=== PATIENT | female | born 1930 | race Caucasian/White ===

== ENCOUNTER 2016-12-26 13:04 | Emergency (ER) | payer MEDICARE, BC ==
--- NOTE | 2016-12-26 13:43 | EDM.PDOC ---
ED HPI GENERAL MEDICAL PROBLEM - General Chief Complaint: General Stated Complaint: ringing in ears Time Seen by Provider: 12/26/16 13:10 Source of Information: Reports: Patient, Family, RN History Limitations: Reports: No Limitations - History of Present Illness INITIAL COMMENTS - FREE TEXT/NARRATIVE: c/o weak, dizzy, ring ears, blur vision x 2d last saw PCP Dr Napier 2m ago for f/u, no change in meds last saw director community organization Dr Wright in summer, has a "leaking heart valve" that was stable lives in [place] at [facility], here with dtr no f/c/d, no n/v does not feel herself PMH htn, a flutter, MVR, PD, UTI, hypothyroids, esophagitis, diverticulosis, PE meds: atorvastatin, Xarelto, metoprolol, diltiazem, dig, sertraline, mirtazapine , Sinemet, levothyroxine last labs: hgb 13.7 & wbc 5.4 with 43% segs and 7% eos on 06-24-15, BUN/creat 28/ 1.1 on 06-24-15, BNP 157 on 06-24-15, TSH 0.51 on 06-24-15, UA with > 100 wbc, few bacteria, moderate epi's on 06-24-15 last imaging: CxR with pul edema on 06-24-15, no cardiac echo in EHR appetite okay, ate toast and OJ for bfast (out of cereal), had fish and rice and mixed veg and toast and ice cream for lunch slept well last night h/o PE, a concernt of dtr - Related Data Allergies Allergy/AdvReac Type Severity Reaction Status Date / Time ciprofloxacin HCl Allergy Cannot Verified 12/26/16 13:14 [From Cipro] Remember hydrocortisone [From Cortaid] Allergy Rash Verified 12/26/16 13:14 niacin Allergy Cannot Verified 12/26/16 13:14 Remember pneumococcal 23-valent Allergy Rash Verified 12/26/16 13:14 polysacchari [From Pneumovax 23] BANDAID Allergy Rash Uncoded 12/26/16 13:14 FLORINAL WITH CODEINE Allergy Cannot Uncoded 12/26/16 13:14 Remember FLU VACCINE Allergy Rash Uncoded 12/26/16 13:14 TAPE Allergy Rash Uncoded 12/26/16 13:14 Home Meds: Home Meds Calcium Carbonate/Vitamin D3 [Calcium 500 with Vitamin D] 1 tab PO DAILY [History] Diltiazem [Cardizem CD] 120 mg PO DAILY 10/25/12 [History] Metoprolol Tartrate [Lopressor] 25 mg PO BID 10/25/12 [History] Sertraline HCl [Zoloft] 100 mg PO DAILY 10/25/12 [History] Brimonidine [Alphagan P 0.1% Ophth Soln] 1 drop OP BID 04/16/13 [History] Digoxin [Digox] 0.125 mg PO DAILY 04/16/13 [History] Mirtazapine [Mirtazapine] 45 mg PO BEDTIME 04/20/15 [History] ALPRAZolam [Xanax] 0.25 mg PO BID PRN 06/24/15 [History] Carbidopa/Levodopa [Carbidopa-Levo ER 50-200] 1.5 tab PO DAILY 06/24/15 [History ] Levothyroxine 125 mcg PO DAILY 06/24/15 [History] Acetaminophen [Tylenol] 325 mg PO Q4HR PRN 12/26/16 [History] Bimatoprost [LUMIGAN 0.03% Ophth Soln] 1 drop EYEBOTH BEDTIME 12/26/16 [History] Carbidopa/Levodopa [Sinemet 25-100 mg Tablet] 2 oz PO DAILY 12/26/16 [History] Carbidopa/Levodopa [Sinemet 25-100 mg Tablet] 2.5 each PO TID 12/26/16 [History] Rivaroxaban [Xarelto] 15 mg PO DAILY 12/26/16 [History] Trimethoprim 100 mg PO DAILY 12/26/16 [History] Past Medical History HEENT History: Reports: Glaucoma, Macular Degeneration Cardiovascular History: Reports: Afib, High Cholesterol, Hypertension Other Cardiovascular History: cardiomegaly Respiratory History: Reports: PE, SOB Gastrointestinal History: Reports: GI Bleed Neurological History: Reports: Parkinson's Psychiatric History: Reports: Anxiety, Depression Endocrine/Metabolic History: Reports: Hypothyroidism Dermatologic History: Reports: Other (See Below) Other Dermatologic History: vericose veins - Past Surgical History GI Surgical History: Reports: Appendectomy Social & Family History - Family History Family Medical History: Noncontributory - Tobacco Use Smoking Status *Q: Never Smoker Second Hand Smoke Exposure: No - Caffeine Use Caffeine Use: Reports: Coffee, Soda - Alcohol Use Days Per Week of Alcohol Use: 0 - Recreational Drug Use Recreational Drug Use: No - Living Situation & Occupation Living situation: Reports: Occupation: Retired ED ROS GENERAL - Review of Systems Review Of Systems: See Below Constitutional: Reports: Weakness, Other (no diuretic). Denies: Fever, Chills, Malaise, Diaphoresis, Decreased Appetite, Weight Loss, Weight Gain HEENT: Reports: Vision Change, Other (ring in ears) Respiratory: Reports: Shortness of Breath Cardiovascular: Reports: No Symptoms. Denies: Chest Pain Endocrine: Reports: No Symptoms GI/Abdominal: Reports: No Symptoms : Reports: No Symptoms Musculoskeletal: Reports: Other (pain at flanks, R>L) Skin: Reports: No Symptoms Neurological: Reports: Tremors, Other (h/o PD, uses walker, more tremulous) Psychiatric: Reports: No Symptoms Hematologic/Lymphatic: Reports: No Symptoms Immunologic: Reports: No Symptoms ED EXAM, GENERAL - Physical Exam Exam: See Below Exam Limited By: No Limitations General Appearance: Alert, WD/WN, No Apparent Distress, Anxious Eye Exam: Bilateral Eye: EOMI, Normal Inspection, PERRL Ears: Normal External Exam, Hearing Grossly Normal Nose: Normal Inspection, Normal Mucosa, No Blood Throat/Mouth: Normal Inspection, Normal Lips, Normal Gums, Normal Oropharynx, Normal Voice, No Airway Compromise Head: Atraumatic, Normocephalic Neck: Normal Inspection, Supple, Non-Tender Respiratory/Chest: No Respiratory Distress, Lungs Clear, Normal Breath Sounds, No Accessory Muscle Use, Chest Non-Tender, Other (mild tachypnea with RR 24, occasional nonproductive cough, clear all cr) Cardiovascular: Regular Rate, Rhythm, No Edema, No Gallop, No JVD, No Rub, Other (dec'd turgor ext x 4, no tenting, 2-3/6 MAHOGANY AAL to LSB, no heave) GI/Abdominal: Normal Bowel Sounds, Soft, Non-Tender, No Organomegaly, No Distention, No Mass Back Exam: Normal Inspection, Other (slight tender CVA R>L) Extremities: Normal Inspection, Non-Tender, No Pedal Edema Neurological: Alert, Oriented, CN II-XII Intact, Normal Cognition, No Motor/ Sensory Deficits, Other (tremor UE and LEs, nl speech, did sit readily without assistance) Psychiatric: Normal Affect, Normal Mood Skin Exam: Warm, Dry, Intact, Normal Color, No Rash Lymphatic: No Adenopathy Course - Vital Signs Last Recorded V/S: Last Vital Signs Temp 36.3 C 12/26/16 13:15 Pulse 70 12/26/16 13:15 Resp 18 12/26/16 13:15 BP 165/87 H 12/26/16 13:15 Pulse Ox 98 12/26/16 13:15 - Orders/Labs/Meds Orders: Active Orders 24 hr Category Date Time Status Orthostatic Vital Signs [RC] ASDIRECTED Care 12/26/16 14:53 Active CULTURE URINE [RM] Stat Lab 12/26/16 13:43 Received EKG 12 Lead [EK] Routine Ther 12/26/16 13:34 Ordered Labs: Laboratory Tests 12/26/16 12/26/16 12/26/16 Range/Units 13:43 13:50 13:50 WBC 9.1 (4.5-12.0) X10-3/uL RBC 3.33 (3.23-5.20) x10(6)uL Hgb 10.4 L D (11.5-15.5) g/dL Hct 31.5 D (30.0-51.3) % MCV 94.6 (80-96) fL MCH 31.4 (27.7-33.6) pg MCHC 33.2 (32.2-35.4) g/dL RDW 13.0 (11.5-15.5) % Plt Count 264 (125-369) X10(3)uL MPV 8.0 (7.4-10.4) fL Neut % (Auto) 79.4 (46-82) % Lymph % (Auto) 11.0 L (13-37) % [place] % (Auto) 6.4 (4-12) % Eos % (Auto) 3 (1.0-5.0) % Baso % (Auto) 1 (0-2) % Neut # (Auto) 7.2 (1.6-8.3) # Lymph # (Auto) 1.0 (0.6-5.0) # [place] # (Auto) 0.6 (0.0-1.3) # Eos # (Auto) 0.2 (0.0-0.8) # Baso # (Auto) 0.1 (0.0-0.2) # D-Dimer, Quantitative 135 (100-400) ng/mL Sodium (135-145) mmol/L Potassium (3.5-5.3) mmol/L Chloride (100-110) mmol/L Carbon Dioxide (23-29) mmol/L BUN (8-23) mg/dL Creatinine (0.6-1.3) mg/dL Est Cr Clr Drug Dosing mL/min Estimated GFR (MDRD) (>60) BUN/Creatinine Ratio (9-20) Glucose (80-116) mg/dL Calcium (8.6-10.2) mg/dL Total Bilirubin (0.1-1.3) mg/dL AST (5-27) IU/L ALT (14-26) IU/L Alkaline Phosphatase (56-112) IU/L Troponin I (0.02-0.06) NG/ML C-Reactive Protein (0.0-1.0) mg/dL NT-Pro-B Natriuret Pep (5-450) pg/mL Total Protein (6.0-8.0) g/dL Albumin (3.2-4.6) g/dL Globulin g/dL Albumin/Globulin Ratio Urine Color Yellow (YELLOW) Urine Appearance Clear (CLEAR) Urine pH 6.0 (5.0-6.5) Ur Specific [place] 1.015 (1.010-1.025) Urine Protein Negative (NEGATIVE) mg/dL Urine Glucose (UA) Normal (NEGATIVE) mg/dL Urine Ketones Negative (NEGATIVE) mg/dL Urine Occult Blood Negative (NEGATIVE) Urine Nitrite Negative (NEGATIVE) Urine Bilirubin Negative (NEGATIVE) Urine Urobilinogen Normal (NEGATIVE) mg/dL Ur Leukocyte Esterase Negative (NEGATIVE) Urine RBC 0-5 (0) Urine WBC 0-5 (0) Ur Squamous Epith Cells Rare (NS,R,O) Amorphous Sediment Moderate Urine Bacteria Moderate H (NS) 12/26/16 12/26/16 Range/Units 13:50 13:50 WBC (4.5-12.0) X10-3/uL RBC (3.23-5.20) x10(6)uL Hgb (11.5-15.5) g/dL Hct (30.0-51.3) % MCV (80-96) fL MCH (27.7-33.6) pg MCHC (32.2-35.4) g/dL RDW (11.5-15.5) % Plt Count (125-369) X10(3)uL MPV (7.4-10.4) fL Neut % (Auto) (46-82) % Lymph % (Auto) (13-37) % [place] % (Auto) (4-12) % Eos % (Auto) (1.0-5.0) % Baso % (Auto) (0-2) % Neut # (Auto) (1.6-8.3) # Lymph # (Auto) (0.6-5.0) # [place] # (Auto) (0.0-1.3) # Eos # (Auto) (0.0-0.8) # Baso # (Auto) (0.0-0.2) # D-Dimer, Quantitative (100-400) ng/mL Sodium 140 (135-145) mmol/L Potassium 4.6 (3.5-5.3) mmol/L Chloride 106 (100-110) mmol/L Carbon Dioxide 27 (23-29) mmol/L BUN 37 H (8-23) mg/dL Creatinine 1.3 (0.6-1.3) mg/dL Est Cr Clr Drug Dosing 25.48 mL/min Estimated GFR (MDRD) 39 L (>60) BUN/Creatinine Ratio 28.5 H (9-20) Glucose 124 H (80-116) mg/dL Calcium 8.7 (8.6-10.2) mg/dL Total Bilirubin 0.5 (0.1-1.3) mg/dL AST 17 D (5-27) IU/L ALT < 5 L (14-26) IU/L Alkaline Phosphatase 63 (56-112) IU/L Troponin I < 0.01 L (0.02-0.06) NG/ML C-Reactive Protein < 0.5 (0.0-1.0) mg/dL NT-Pro-B Natriuret Pep 671 H (5-450) pg/mL Total Protein 6.5 (6.0-8.0) g/dL Albumin 3.6 (3.2-4.6) g/dL Globulin 2.9 g/dL Albumin/Globulin Ratio 1.2 Urine Color (YELLOW) Urine Appearance (CLEAR) Urine pH (5.0-6.5) Ur Specific [place] (1.010-1.025) Urine Protein (NEGATIVE) mg/dL Urine Glucose (UA) (NEGATIVE) mg/dL Urine Ketones (NEGATIVE) mg/dL Urine Occult Blood (NEGATIVE) Urine Nitrite (NEGATIVE) Urine Bilirubin (NEGATIVE) Urine Urobilinogen (NEGATIVE) mg/dL Ur Leukocyte Esterase (NEGATIVE) Urine RBC (0) Urine WBC (0) Ur Squamous Epith Cells (NS,R,O) Amorphous Sediment Urine Bacteria (NS) Meds: Medications Discontinued Medications Generic Name Dose Route Start Last Admin Trade Name Freq PRN Reason Stop Dose Admin Carbidopa/Levodopa 2.5 tab 12/26/16 14:44 12/26/16 14:55 Sinemet 25-100 Mg PO 12/26/16 14:45 2.5 tab ONETIME ONE Administration - Re-Assessments/Exams Free Text/Narrative Re-Assessment/Exam: 12/26/16 15:13 pt is orthostatic with BP 172/81 and HR 18 supine, BP 128/73 and HR 20 lying d/w Dr Gonzalez who does not see pul edema, thinks that there is COPD, pt never smoked, her smoked, PO 98% on RA here today cardiac values (trop, proBNP, EKG without strain) are all stable, is in SR BUN/creat have inc'd to 37/1.3 form 28/1.1, perhaps d/t dehydration as clinically she has dec'd turgor and drinks very little, not on diuretic however also with new onset anemia with hgb 10.4 c/w 13.7 one yr ago, had a neg colonoscopy 1y ago, will check hemoccult cards has apt with PCP Dr Napier in 2 wk, will move that up to next weeks Departure - Departure Time of Disposition: 15:12 Disposition: Home, Self-Care 01 Condition: Good Clinical Impression: Orthostasis, Dehydration, Acute on chronic renal failure, Normocytic normochromic anemia, Bacteria in urine - Discharge Information Referrals: Esa Napier MD [Primary Care Provider] - Forms: ED Department Discharge Additional Instructions: Continue current meds. Drink 1.2 liters of fluids daily. Record the amount of fluid that you drink in the next week. Collect 3 Hemoccult cards prior to your visit with Dr Napier. See Dr Napier in the next 4-5 days. Return to ED if you are feeling worse. Call your Physician or Return to Emergency Department if: * Your condition worsens in any way. * You develop fever greater than 100.4. * You have vomitting that does not stop with medications. * You have pain that is not controlled with medications. - My Orders Last 24 Hours: My Active Orders 12/26/16 13:34 EKG 12 Lead [EK] Routine 12/26/16 13:43 CULTURE URINE [RM] Stat 12/26/16 14:53 Orthostatic Vital Signs [RC] ASDIRECTED - Assessment/Plan Last 24 Hours: My Active Orders 12/26/16 13:34 EKG 12 Lead [EK] Routine 12/26/16 13:43 CULTURE URINE [RM] Stat 12/26/16 14:53 Orthostatic Vital Signs [RC] ASDIRECTED
[2016-12-26] MEDS ORDERED: Carbidopa/Levodopa 25-100 MG Tab PO ONE ×2 (14:35→14:44)
--- NOTE | 2016-12-26 14:47 | CR ---
INDICATION: Short of breath. CHEST: PA and lateral views of the chest 12/26/2016 were compared with 2015 and 10/11/2014, again revealing the heart to be enlarged with left ventricular and left atrial enlargement suggested. The aorta is tortuous with calcification in the arch. Findings remain compatible with COPD with hyperaeration, increased AP diameter, and minimal flattening of diaphragm leaves on the lateral view. An active infiltrate or effusion was not identified. Somewhat diminished bone density is suggested, which may be on the basis of osteoporosis or osteomalacia and should be correlated clinically. Moderate hypertrophic degenerative changes are noted in the upper middle thoracic spine. Degenerative disk disease is noted at several levels in the upper middle and middle thoracic spine. No evidence of CHF is identified. IMPRESSION: 1. No definite acute process. 2. COPD. 3. ASHD with LVE and LAE. 4. Osteoporosis, DJD, and disk disease upper middle thoracic spine. MTDD
[2016-12-26 15:35] VITALS: BP 152/84
== END 2016-12-26 15:35 | disposition home or self-care (01) ==
LOC: FB.ED 13:04
DX: I95.1 Orthostatic hypotension (principal); N17.9 Acute kidney failure, unspecified; I12.9 Hypertensive chronic kidney disease with stage 1 through stage 4 chronic kidney disease, or unspecified chronic kidney disease; N18.9 Chronic kidney disease, unspecified; E86.0 Dehydration; D64.9 Anemia, unspecified; R82.71 Bacteriuria; I48.92 Unspecified atrial flutter; E03.9 Hypothyroidism, unspecified; Z79.899 Other long term (current) drug therapy; Z88.7 Allergy status to serum and vaccine; Z88.1 Allergy status to other antibiotic agents; Z91.09 Other allergy status, other than to drugs and biological substances
CPT/HCPCS: 36415; 71020; 80053; 81001; 83880; 84484; 85025; 85379; 86140; 87086; 87088; 87186; 93005; 99284; A9270

== ENCOUNTER 2017-11-11 07:49 | Day surgery (SDC) | payer MEDICARE, BC ==
[2017-11-11] MEDS ORDERED: Lactated Ringers 1,000 ML IV SCH (08:05)
[2017-11-11] MEDS ORDERED: Propofol 200 MG/20 ML SDV IV ONE (09:30)
--- NOTE | 2017-11-11 09:48 | PCM.OPNOTE ---
- General Post-Op/Procedure Note Date of Surgery/Procedure: 11/11/17 Operative Procedure(s): egd with biopsy Findings: distal esophageal mass/stricture Pre Op Diagnosis: dysphagia. gerd Post-Op Diagnosis: esophageal mass/stricture Anesthesia Technique: MAC Primary Surgeon: Reynaldo Henry Anesthesia Provider: Sravanthi Beltran Pathology: distal esophagus Complications: None Condition: Good Free Text/Narrative:: see dictation
--- NOTE | 2017-11-11 11:24 | OR ---
DATE OF OPERATION: 11/11/2017 SURGEON: Reynaldo Henry MD PROCEDURES PERFORMED: EGD with cold forceps biopsy. PREOPERATIVE DIAGNOSIS: Gastroesophageal reflux disease with possible esophageal stricture. POSTOPERATIVE DIAGNOSES: Esophageal stricture/mass, proximal esophageal dilatation. INDICATIONS FOR PROCEDURE: This is an 87-year-old white female referred with a history of some dysphagia. On recent upper GI, she was noted to have some findings consistent with possible achalasia or stricture, questionable mass. She was offered and accepted an upper endoscopy. DESCRIPTION OF PROCEDURE: After an excellent IV sedation was administered, the bite block was inserted. The flexible endoscope was passed without difficulty down the patient's esophagus and into the stomach. The stomach was insufflated. The scope was passed through the pylorus, to the second portion of the duodenum, and slowly withdrawn. The following findings were noted. The duodenum was unremarkable. The stomach was unremarkable. Esophagus, GE junction measured approximately 38 cm. At approximately 30 cm, there was a mass approximately 3 to 4 cm in length with what appears to be extension into the esophagus. Multiple biopsies were taken. The proximal esophagus was markedly dilated and photo was taken. The patient tolerated the procedure well and was taken to the recovery room. /[id number] ISRA/LEAH
[2017-11-11 12:41] VITALS: BP 156/98
== END 2017-11-11 11:21 | disposition home or self-care (01) ==
LOC: FB.SDS 07:49
PROVIDERS: ATTEND Surgery
DX: C15.5 Malignant neoplasm of lower third of esophagus (principal); K21.9 Gastro-esophageal reflux disease without esophagitis; K22.0 Achalasia of cardia; I10 Essential (primary) hypertension; I48.92 Unspecified atrial flutter; E03.9 Hypothyroidism, unspecified; E78.5 Hyperlipidemia, unspecified; G20 Parkinson's disease; F32.9 Major depressive disorder, single episode, unspecified; F41.1 Generalized anxiety disorder; Z79.01 Long term (current) use of anticoagulants; Z79.899 Other long term (current) drug therapy; Z88.1 Allergy status to other antibiotic agents; Z88.7 Allergy status to serum and vaccine; Z88.8 Allergy status to other drugs, medicaments and biological substances; Z91.048 Other nonmedicinal substance allergy status
CPT/HCPCS: 00731-QZ; 88305; 88313; 88341; 88342; J2704; J7120